=== PATIENT | female | born 1955 | race Caucasian/White ===

== ENCOUNTER 2016-12-01 09:30 | Emergency (ER) | payer BC ==
--- NOTE | ~2016-12-01 | CR63 ---
[facility] A Service of [facility] RADIOLOGY TEXT RESULTS PATIENT: GIOVANY ALVES LOCATION: SED : 57 UNIT #: [id number] AGE: [address]: Alissa Up APRN SEX: F ORDER DR: [id number] [address] [id number] [id number] E MR#: [id number] Acc #: [id number] NAME: GIOVANY ALVES : 1955 SEX: F STUDY DATE/TIME: 12/01/2016 10:16 UNIT: SED ROOM: STUDY DESCRIPTION: CR Chest 2 View Attending Physician: Alissa Up A.P.R.N. Ordering Physician: Alissa Dan A.P.R.N. Primary Care Physician: Davina Mendez M.D. MEDICAL IMAGING REPORT This report is preliminary unless electronic signature is present. EXAM PA lateral chest date: 12/01/2016 10:16 HISTORY 61-year-old female with complaints of shortness of breath this morning, cough, congestion, shortness of breath. Smoking history. COMPARISON CT chest 09/09/2016. FINDINGS Upper lobes appear hyperinflated and emphysematous. 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 Suspected mild atelectasis or infiltrate within the posterior left lower lobe. Right lung is thought to be clear. Benign calcified granulomatous changes right hilum and right lower lobe. The study is attenuated by body habitus. There is mild cardiac enlargement. IMPRESSION 1. Suspected mild posterior left lower lobe atelectasis or infiltrate. 2. Mild cardiomegaly. 3. Mild emphysematous changes. 4. Benign calcified granulomatous changes. Dictated by... Rosina Johnson M.D. THIS IS AN ELECTRONICALLY VERIFIED REPORT [facility] A Service of [facility] & [facility] RADIOLOGY TEXT RESULTS PATIENT: GIOVANY ALVES LOCATION: SED : 57 UNIT #: [id number] AGE: [address]: Alissa Up APRN SEX: F ORDER DR: Rosina Johnson M.D. at 12/02/2016 8:34 AM FEDERICO/omero TD: 12/01/2016 13:14 JOB #: [id number] MEDICAL IMAGING REPORT Page 1 of 1
[~2016-12-01 09:30] MED LIST: COREG6.25 M1; LIPITOR20 MG; LOTREL 5/401 CAP
== END 2016-12-01 11:56 | disposition home or self-care (01) ==
LOC: SED 09:30
DX: J18.1 Lobar pneumonia, unspecified organism (principal); I10 Essential (primary) hypertension; F17.210 Nicotine dependence, cigarettes, uncomplicated
CPT/HCPCS: 71020; 94640; 99284